=== PATIENT | male | born 2000 | race Caucasian/White ===

== ENCOUNTER → 2020-03-11 | Outpatient (CLI) | payer SELFPAY | LOC: M LABSMTC 10:15 | PROVIDERS: ATTEND Pediatrics | DX: Z20.828 Contact with and (suspected) exposure to other viral communicable diseases (principal) ==

== ENCOUNTER → 2020-06-12 | Outpatient (CLI) | payer SELFPAY | LOC: M LABSMTC 10:30 | PROVIDERS: ATTEND Pediatrics | DX: Z20.822 Contact with and (suspected) exposure to COVID-19 (principal) ==

== ENCOUNTER 2020-08-11 16:30 | Emergency (ER) | payer BC, OTHER ==
[~2020-08-11] VITALS: Ht 185.4 cm; Wt 89.0 kg
[2020-08-11] MEDS ORDERED: FINA1TAB12 (16:45)
[2020-08-11 19:18] LABS: BASO # 0.1 10^3/uL (0.0-0.2); BASO % 0.7 % (0.0-1.0); EOS # 0.1 10^3/uL (0.0-0.5); EOS % 1.1 % (0.0-3.0); HEMATOCRIT 46.8 % (42.0-52.0); HEMOGLOBIN 15.8 g/dl (13.5-17.5); LYMPH # 2.2 10^3/uL (1.5-5.0); LYMPH % 26.2 % (24.0-44.0); MEAN CORPUSCULAR HEMOGLOBIN 30.7 pg (27.0-33.0); MEAN CORPUSCULAR HGB CONC 33.8 g/dl (32.0-36.5); MEAN CORPUSCULAR VOLUME 91.1 fl (80.0-96.0); MONO # 0.5 10^3/uL (0.0-0.8); MONO % 5.5 % (2.0-8.0); NEUTROPHILS # 5.6 10^3/uL (1.5-8.5); NEUTROPHILS % 66.1 % (36.0-66.0); PLATELET COUNT, AUTOMATED 266 10^3/uL (150-450); RED BLOOD COUNT 5.14 10^6/uL (4.30-6.10); WHITE BLOOD COUNT 8.4 10^3/uL (4.0-10.0)
[2020-08-11 19:33] LABS: ALBUMIN 4.5 GM/DL (3.2-5.2); ALT/SGPT 33 U/L (12-78); BILIRUBIN,DIRECT 0.2 MG/DL (0.0-0.2); BILIRUBIN,TOTAL 0.6 MG/DL (0.2-1.0); BLOOD UREA NITROGEN 16 MG/DL (7-18); CALCIUM LEVEL 9.7 MG/DL (8.5-10.1); CARBON DIOXIDE LEVEL 28 MEQ/L (21-32); CHLORIDE LEVEL 108 MEQ/L (98-107); CK-MB VALUE MASS 1.1 NG/ML (<3.6); CPK CREATINE PHOSPHOKINASE 70 U/L (39-308); CREATININE FOR GFR 1.04 MG/DL (0.70-1.30); FREE T4 1.08 NG/DL (0.76-1.46); GLOMERULAR FILTRATION RATE > 60.0 (>60); GLUCOSE, FASTING 94 MG/DL (70-100); LIPASE 219 U/L (73-393); MB/CK RELATIVE INDEX 1.57 (< OR =4); POTASSIUM SERUM 3.9 MEQ/L (3.5-5.1); SODIUM LEVEL 140 MEQ/L (136-145); THYROID STIMULATING HORMONE 0.749 uIU/ML (0.358-3.740); TROPONIN I < 0.02 NG/ML (< 0.10)
[2020-08-11] MEDS ORDERED: NS 1,000 ML IV ONE (19:45)
--- NOTE | 2020-08-11 19:51 | REP ---
INDICATION: chest discomfort. COMPARISON: No comparison chest x-ray. TECHNIQUE: Two views.. FINDINGS: The lungs are well inflated and free of infiltrate. The pleural angles are sharp. The heart size is normal. Pulmonary vasculature is not increased. No significant bony abnormality is seen. IMPRESSION: Negative chest x-ray. <Electronically signed by Sameer Paiz > 08/11/201946
--- NOTE | 2020-08-11 20:09 | ECGEPIP ---
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
[2020-08-11 21:05] VITALS: BP 129/83
== END 2020-08-11 21:11 | disposition home or self-care (01) ==
LOC: M ED 16:30
DX: R00.2 Palpitations (principal); Z91.010 Allergy to peanuts

== ENCOUNTER 2020-08-13 21:30 | Emergency (ER) | payer BC, OTHER ==
[~2020-08-13] VITALS: Ht 185.4 cm; Wt 89.5 kg
[~2020-08-13 21:30] MED LIST: FINA1TAB12
[2020-08-13] MEDS ORDERED: ISOVUE-370 76% 100ML VIAL As Ordered ONE (22:30)
--- NOTE | 2020-08-13 22:56 | REPVR ---
PROCEDURE INFORMATION: Exam: CT Angiography Chest With Contrast Exam date and time: 08/13/2020 10:36 PM Age: 20 years old Clinical indication: Shortness of breath; Chest pain; Additional info: Chest pain, SOB TECHNIQUE: Imaging protocol: Computed tomographic angiography of the chest with contrast. 3D rendering (Not supervised by radiologist): MIP and/or 3D reconstructed images were created by the technologist. Radiation optimization: All CT scans at this facility use at least one of these dose optimization techniques: automated exposure control; mA and/or kV adjustment per patient size (includes targeted exams where dose is matched to clinical indication); or iterative reconstruction. Contrast material: ISOVUE 370; Contrast volume: 75 ml; Contrast route: INTRAVENOUS (IV); COMPARISON: AR Chest, 2 view PA, Lat 08/11/2020 7:22 PM FINDINGS: Pulmonary arteries: The main pulmonary artery measures 23 mm. No pulmonary embolism is identified. Aorta: The ascending thoracic aorta measures 28 mm. Lungs: Unremarkable. No consolidation. No masses. Pleural spaces: Unremarkable. No pneumothorax. No pleural effusion. Heart: Unremarkable. No cardiomegaly. No pericardial effusion. Lymph nodes: Unremarkable. No enlarged lymph nodes. Gallbladder and bile ducts: The gallbladder is somewhat contracted with no stones. Stomach and bowel: Mild distention of the stomach with food material. Bones/joints: Unremarkable. No acute fracture. Soft tissues: Unremarkable. IMPRESSION: 1. There is mild distention of the stomach with food material which in view of a somewhat contracted gallbladder likely reflects recent ingestion. 2. Otherwise negative CTA chest. No pulmonary embolism is identified. Electronically signed by: Catracho Silvestre On 08/13/2020 22:56:31 PM
[2020-08-13 23:12] LABS: CK-MB VALUE MASS < 1.0 NG/ML (<3.6); CPK CREATINE PHOSPHOKINASE 78 U/L (39-308); MB/CK RELATIVE INDEX 1.28 (< OR =4); TROPONIN I < 0.02 NG/ML (< 0.10)
[2020-08-13] MEDS ORDERED: GI COCKTAIL 50ML BTL(HYOSCYAMINE/MAALOX/LIDOCAINE VISCOUS)(1:3:1) PO ONE (23:35)
[2020-08-13] MEDS ORDERED: NEXI20CA PO (23:47)
[2020-08-14 00:15] VITALS: BP 139/86
--- NOTE | 2020-08-14 07:14 | ECGEPIP ---
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
[2020-08-14] MEDS ORDERED: XANA0.5T PO (09:57)
[2020-08-14] MEDS ORDERED: SUCR1SS PO (09:57)
== END 2020-08-14 00:33 | disposition home or self-care (01) ==
LOC: M ED 21:30
DX: R07.9 Chest pain, unspecified (principal); Z79.899 Other long term (current) drug therapy; Z91.010 Allergy to peanuts
CPT/HCPCS: 71275; 82550; 82553; 84484; 85652; 86140; 87798; 93005; 99284; Q9967

== ENCOUNTER 2020-08-14 07:12 | Emergency (ER) | payer BC, OTHER ==
[~2020-08-14] VITALS: Ht 185.4 cm; Wt 90.9 kg
[~2020-08-14 07:12] MED LIST changes: +NEXI20CA PO
[2020-08-14] MEDS ORDERED: ALPRAZolam 0.5 MG TAB PO ONE (08:35)
--- NOTE | 2020-08-14 09:04 | REP ---
INDICATION: upper abd pain, n/v COMPARISON: None. TECHNIQUE: Real time george scale ultrasound examination using curved array transducer. FINDINGS: Liver is normal in contour, size, and echogenicity without focal hepatic lesions identified. Pancreas is incompletely evaluated due to interposed bowel gas. The gallbladder is normal and without gallstones, wall thickening, or pericholecystic fluid. No biliary ductal dilatation is appreciated and the common bile duct measures 2.0 mm diameter. Right kidney is normal in reniform shape without hydronephrosis and measures 10.6 x 5.2 x 4.6 cm. No ascites in the visualized right upper quadrant. IMPRESSION: Normal limited right upper quadrant ultrasound <Electronically signed by Daniel Queen > 08/14/20 0900
[2020-08-14] MEDS ORDERED: SUCR1SS PO (09:57)
[2020-08-14] MEDS ORDERED: XANA0.5T PO (09:57)
[2020-08-14 10:07] VITALS: BP 128/72
--- NOTE | 2020-08-15 06:24 | ECGEPIP ---
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
== END 2020-08-14 10:15 | disposition home or self-care (01) ==
LOC: M ED 07:12
DX: R00.2 Palpitations (principal); R11.2 Nausea with vomiting, unspecified; Z79.899 Other long term (current) drug therapy; Z91.010 Allergy to peanuts

== ENCOUNTER → 2021-07-02 | Outpatient (CLI) | payer BC, OTHER ==
[~2021-07-02] MED LIST changes: +SUCR1SS PO; +XANA0.5T PO
[2021-07-02 16:14] LABS: ALT/SGPT 35 U/L (12-78); BLOOD UREA NITROGEN 19 MG/DL (7-18); CALCIUM LEVEL 9.6 MG/DL (8.5-10.1); CARBON DIOXIDE LEVEL 31 MEQ/L (21-32); CHLORIDE LEVEL 106 MEQ/L (98-107); CHOLESTEROL LEVEL 153 MG/DL (<200); CHOLESTEROL RISK RATIO 3.122 (<5); CREATININE FOR GFR 1.28 MG/DL (0.70-1.30); GLOMERULAR FILTRATION RATE > 60.0 (>60); GLUCOSE, FASTING 82 MG/DL (70-100); HDL CHOLESTEROL 49 MG/DL (>40); LDL CHOLESTEROL 84 MG/DL (<100); NON-HDL-C 104 MG/DL; POTASSIUM SERUM 4.1 MEQ/L (3.5-5.1); SODIUM LEVEL 141 MEQ/L (136-145); TOTAL PROTEIN 7.4 GM/DL (6.4-8.2); TRIGLYCERIDES LEVEL 99 MG/DL (<150)
== END ==
LOC: M LAB 15:05
PROVIDERS: ATTEND Physician Assistant
DX: L70.0 Acne vulgaris (principal)

== ENCOUNTER 2022-03-30 13:32 | Emergency (ER) | payer OTHER, BC ==
[~2022-03-30] VITALS: Ht 185.4 cm; Wt 94.5 kg
[2022-03-30] MEDS ORDERED: DICL20GE TP (17:58)
[2022-03-30 18:07] VITALS: BP 137/78
== END 2022-03-30 18:19 | disposition home or self-care (01) ==
LOC: M ED 13:32
DX: M25.562 Pain in left knee (principal); Z79.899 Other long term (current) drug therapy; Z91.010 Allergy to peanuts

== ENCOUNTER 2022-06-18 08:45 | Emergency (ER) | payer BC, OTHER ==
[~2022-06-18] VITALS: Ht 185.4 cm; Wt 90.6 kg
[~2022-06-18 08:45] MED LIST changes: +DICL20GE TP
[2022-06-18] MEDS ORDERED: BENZ200C70 PO (09:47)
[2022-06-18] MEDS ORDERED: BENZ1LOZ9 PO (09:47)
[2022-06-18] MEDS ORDERED: PROA1AER2 INH (09:47)
[2022-06-18 10:03] VITALS: O2SAT 98
[2022-06-18 10:17] VITALS: BP 118/59
== END 2022-06-18 10:33 | disposition home or self-care (01) ==
LOC: M ED 08:45
DX: U07.1 COVID-19 (principal); J02.9 Acute pharyngitis, unspecified; F41.9 Anxiety disorder, unspecified; F41.0 Panic disorder [episodic paroxysmal anxiety]; Z91.010 Allergy to peanuts; Z79.52 Long term (current) use of systemic steroids; Z79.899 Other long term (current) drug therapy

== ENCOUNTER 2024-11-15 04:11 | Emergency (ER) | payer BC ==
[~2024-11-15] VITALS: Ht 185.4 cm; Wt 93.4 kg
[~2024-11-15 04:11] MED LIST changes: +BENZ1LOZ9 PO; +BENZ200C70 PO; +EPIN0.3I11; -FINA1TAB12; +FINA1TAB4; +PRED20TA PO; +PROA1AER2 INH
[2024-11-15 04:12] VITALS: TEMP 97.8
[2024-11-15 05:29] LABS: BASO # 0.0 10^3/uL (0.0-0.2); BASO % 0.6 % (0.0-1.0); EOS # 0.1 10^3/uL (0.0-0.5); EOS % 1.7 % (0.0-3.0); LYMPH # 1.3 10^3/uL (1.5-5.0); LYMPH % 25.0 % (24.0-44.0); MONO # 0.4 10^3/uL (0.0-0.8); MONO % 6.5 % (2.0-8.0); NEUTROPHILS # 3.5 10^3/uL (1.5-8.5); NEUTROPHILS % 66.0 % (36.0-66.0); PLATELET COUNT, AUTOMATED 231 10^3/uL (150-450)
[2024-11-15 05:56] LABS: ALT/SGPT 20.0 U/L (7.0-40); AST/SGOT 18.0 U/L (<34)
[2024-11-15] MEDS ORDERED: DICY1CAP8 PO (07:53)
[2024-11-15] MEDS ORDERED: COLA100C5 PO (07:53)
[2024-11-15 08:15] VITALS: BP 122/79; O2SAT 100
== END 2024-11-15 08:21 | disposition home or self-care (01) ==
LOC: M ED 04:11
DX: R10.9 Unspecified abdominal pain (principal); K59.00 Constipation, unspecified; F41.0 Panic disorder [episodic paroxysmal anxiety]; Z91.010 Allergy to peanuts; Z79.52 Long term (current) use of systemic steroids

== ENCOUNTER 2024-11-17 04:39 | Emergency (ER) | payer BC ==
[~2024-11-17] VITALS: Ht 182.9 cm; Wt 92.0 kg
[~2024-11-17 04:39] MED LIST changes: +COLA100C5 PO; +DICY1CAP8 PO
[2024-11-17 07:41] LABS: BASO # 0.0 10^3/uL (0.0-0.2); BASO % 0.4 % (0.0-1.0); EOS # 0.0 10^3/uL (0.0-0.5); EOS % 0.1 % (0.0-3.0); LYMPH # 1.4 10^3/uL (1.5-5.0); LYMPH % 19.5 % (24.0-44.0); MONO # 0.4 10^3/uL (0.0-0.8); MONO % 4.7 % (2.0-8.0); NEUTROPHILS # 5.6 10^3/uL (1.5-8.5); NEUTROPHILS % 75.0 % (36.0-66.0); PLATELET COUNT, AUTOMATED 282 10^3/uL (150-450)
[2024-11-17] MEDS ORDERED: DICY-61 PO (07:49)
[2024-11-17] MEDS ORDERED: DOCU100C16 PO (07:49)
[2024-11-17] MEDS ORDERED: EPIP0.3I2 IM (07:50)
[2024-11-17] MEDS ORDERED: HOME MED LIST COMPLETE! XX SCH (07:55)
[2024-11-17] MEDS: GASTROGRAFIN SOLUTION 30ML PO SCH (07:56)
[2024-11-17 08:13] LABS: ALT/SGPT 23 U/L (7.0-40); AST/SGOT 19 U/L (<34); CALCIUM LEVEL 10.2 MG/DL (8.5-10.1); CARBON DIOXIDE LEVEL 27 MMOL/L (20-31); CHLORIDE LEVEL 103 MMOL/L (98-107); CREATININE FOR GFR 1.13 MG/DL (0.70-1.30); GLOMERULAR FILTRATION RATE > 90.0 (>60); POTASSIUM SERUM 4.7 MMOL/L (3.5-5.1); SODIUM LEVEL 141 MMOL/L (136-145)
[2024-11-17] MEDS ORDERED: ISOVUE-370 76% 100 ML VIAL As Ordered ONE (09:48)
[2024-11-17 12:42] VITALS: BP 119/83; TEMP 98.1; O2SAT 100
[2024-11-17 12:42] LABS: KETONE, URINE AUTO RFX NEGATIVE (NEGATIVE); LEUKOCYTE ESTERASE UR AUTO RFX NEGATIVE (NEGATIVE); NITRITE, URINE AUTO RFX NEGATIVE (NEGATIVE); RBC, URINE AUTO RFX 3 /HPF (0-3); SQUAM EPITHELIAL CELL UR AURFX 0 /HPF (0-6); WBC, URINE AUTO RFX 0 /HPF (0-3)
== END 2024-11-17 12:55 | disposition home or self-care (01) ==
LOC: M ED 04:39
DX: N20.1 Calculus of ureter (principal); R10.9 Unspecified abdominal pain; Z91.010 Allergy to peanuts; Z79.899 Other long term (current) drug therapy
CPT/HCPCS: 36415; 74018; 74177; 80048; 80076; 81001; 83690; 85025; 93041; 99285; Q9963; Q9967

== ENCOUNTER → 2024-12-03 | Outpatient (REF) | payer BC ==
[~2024-12-03] MED LIST changes: +DICY-61 PO; +DOCU100C16 PO; +EPIP0.3I2 IM
[2024-12-03 15:39] LABS: AMORPHOUS SEDIMENT SMALL (NEGATIVE); APPEARANCE, URINE TURBID (CLEAR); BACTERIA, URINE AUTO NEGATIVE (NEGATIVE); BILIRUBIN, URINE AUTO NEGATIVE (NEGATIVE); BLOOD, URINE BLOOD 3+ (NEGATIVE); GLUCOSE, URINE (UA) AUTO NEGATIVE (NEGATIVE); KETONE, URINE AUTO NEGATIVE (NEGATIVE); LEUKOCYTE ESTERASE, URINE AUTO NEGATIVE (NEGATIVE); MUCUS, URINE MODERATE (NEGATIVE); NITRITE, URINE AUTO NEGATIVE (NEGATIVE); PROTEIN, URINE AUTO NEGATIVE (NEGATIVE); RBC, URINE AUTO 144 /HPF (0-3); SPECIFIC GRAVITY URINE AUTO 1.025 (1.002-1.035); SQUAMOUS EPITHELIAL CELL UR AU 0 /HPF (0-6); UROBILINOGEN, URINE AUTO 0.2 mg/dL (0.0-2.0); WBC, URINE AUTO 3 /HPF (0-3)
== END ==
LOC: M SMT 15:08
PROVIDERS: ATTEND Nurse Practitioner Family
DX: N20.0 Calculus of kidney (principal)

== ENCOUNTER → 2024-12-13 | Outpatient (CLI) | payer BC | LOC: M PLAIMG 14:09 | PROVIDERS: ATTEND Nurse Practitioner Family | DX: N20.0 Calculus of kidney (principal) ==

== ENCOUNTER → 2025-03-06 | Outpatient (CLI) | payer BC ==
[2025-03-06 16:23] LABS: BASO # 0.0 10^3/uL (0.0-0.2); BASO % 0.6 % (0.0-1.0); EOS # 0.1 10^3/uL (0.0-0.5); EOS % 1.7 % (0.0-3.0); LYMPH # 2.0 10^3/uL (1.5-5.0); LYMPH % 37.0 % (24.0-44.0); MONO # 0.5 10^3/uL (0.0-0.8); MONO % 9.1 % (2.0-8.0); NEUTROPHILS # 2.8 10^3/uL (1.5-8.5); NEUTROPHILS % 51.4 % (36.0-66.0); PLATELET COUNT, AUTOMATED 273 10^3/uL (150-450)
[2025-03-06 16:57] LABS: ALT/SGPT 27.0 U/L (7.0-40); AST/SGOT 21.0 U/L (<34); CALCIUM LEVEL 9.1 MG/DL (8.5-10.1); CARBON DIOXIDE LEVEL 27.0 MMOL/L (20-31); CHLORIDE LEVEL 104.0 MMOL/L (98-107); CHOLESTEROL LEVEL 156.0 MG/DL (<200); CHOLESTEROL RISK RATIO 4.01 (<5); CREATININE FOR GFR 1.15 MG/DL (0.70-1.30); FREE T4 1.32 NG/DL (0.89-1.76); GLOMERULAR FILTRATION RATE 90.0 (>60); LDL CHOLESTEROL 93.5 MG/DL (<100); MAGNESIUM LEVEL 2.2 MG/DL (1.8-2.4); NON-HDL-C 117.1 MG/DL; POTASSIUM SERUM 4.4 MMOL/L (3.5-5.1); SODIUM LEVEL 140.0 MMOL/L (136-145); TOTAL 25(OH) VITAMIN D 41.7 NG/ML (20.0-100.0); TRIGLYCERIDES LEVEL 118.0 MG/DL (<150)
[2025-03-06 17:25] LABS: ESTIMATED AVERAGE GLUCOSE 97.0 MG/DL (60-110)
== END ==
LOC: M LAB 15:54
PROVIDERS: ATTEND Nurse Practitioner Family
DX: R03.0 Elevated blood-pressure reading, without diagnosis of hypertension (principal)